=== PATIENT | male | born 1960 ===

== ENCOUNTER → 2024-09-15 12:07 | Outpatient (REF) | payer OTHER, SELFPAY | LOC: HWRAD 12:07 | PROVIDERS: ATTENDING PHYSICIAN Family Medicine | DX: M54.50 Low back pain, unspecified (principal) | CPT/HCPCS: 72100; 73502 ==

== ENCOUNTER → 2024-12-08 06:55 | Outpatient (REF) | payer OTHER, SELFPAY | LOC: HWRCS 06:55 | PROVIDERS: ATTENDING PHYSICIAN Family Medicine | DX: R01.1 Cardiac murmur, unspecified (principal) | CPT/HCPCS: 93306 ==